=== PATIENT | female | born 1995 | race American Indian/Alaskan Native ===

== ENCOUNTER 2018-01-20 07:14 | Day surgery (SDC) | payer BC, MEDICAID ==
[2018-01-20] MEDS ORDERED: Lactated Ringer's 1,000 ML IV ONE (07:20)
[2018-01-20 07:29] VITALS: BMI 25.0
[2018-01-20] MEDS ORDERED: Succinylcholine 200 mg/10 ml Inj IV ONE (07:38)
[2018-01-20] MEDS ORDERED: Propofol 10 mg/ml Inj (20 ML) ONE (07:38)
[2018-01-20] MEDS ORDERED: Phenylephrine 10 mg/ml Inj ONE (07:45)
[2018-01-20 07:46] LABS: BASO % 0.4 % (0.0-2.0); EOS # 0.3 K/uL (0.0-0.7); EOS % 3.5 % (0.0-4.0); HEMOGLOBIN 12.8 g/dL (12.0-16.0); LYMPH # 2.7 K/uL (1.0-4.3); LYMPH % 34.9 % (20.0-40.0); MEAN CELL VOLUME 92.3 fl (81.0-99.0); MEAN CORPUSCULAR HEMOGLOBIN 31.6 pg (27.0-31.0); MEAN CORPUSCULAR HGB CONC 34.2 g/dL (33.0-37.0); MEAN PLATELET VOLUME 9.1 fl (7.2-11.7); MONO # 0.6 K/uL (0.0-0.8); MONO % 7.7 % (0.0-10.0); NEUT # 4.1 K/uL (1.8-7.0); NEUT % 53.5 % (50.0-75.0); RBC 4.05 Mil/uL (3.80-5.20); RED CELL DISTRIBUTION WIDTH 13.3 % (11.5-14.5); WHITE BLOOD COUNT 7.6 K/uL (4.8-10.8)
[2018-01-20 08:25] VITALS: O2SAT 100
[2018-01-20] MEDS ORDERED: Midazolam 2 MG/2 ML VIAL ONE (09:13)
[2018-01-20] MEDS ORDERED: cefOXitin IV 1 gm in Dextrose 1 GM/50 ML BAG IVPB ONE (09:33)
[2018-01-20 12:18] VITALS: TEMP 98
[2018-01-20 15:13] VITALS: BP 126/68; PULSE 72; RESP 18
--- NOTE | 2018-01-20 21:13 | OP ---
PROCEDURE DATE: 01/20/2018 PREOPERATIVE DIAGNOSIS: Missed . POSTOPERATIVE DIAGNOSIS: Missed , pending pathology. PROCEDURE: Dilatation and curettage with suction. FINDINGS: Moderate amount of tissue on curettage. ESTIMATED BLOOD LOSS: Above 75 to 100 mL. DESCRIPTION OF PROCEDURE: With the patient in dorsal lithotomy position under general anesthesia, the patient was prepped and draped in the usual sterile manner. Straight catheter was used to empty the bladder, after which the weighted speculum placed in the posterior vagina. Cervix was grasped and dilated. Uterus was found to be enlarged on examination. After that, #8 suction tip was introduced uterus was suctioned and obtained a moderate amount of tissue. Estimated blood loss was about 75 to 100 mL. Instruments were removed from the cervix and after which a hemostasis was maintained. The patient tolerated the procedure well and was in satisfactory condition on the way to recovery room. Joselito Lucio MD
== END 2018-01-20 15:10 | disposition home or self-care (01) ==
LOC: H.OPSURG 07:14
PROVIDERS: ATTEND Specialist
DX: O02.1 Missed abortion (principal)
CPT/HCPCS: 36415; 59820; 85025; 86850; 86900; 88305; J0330; J0694; J2001; J2250; J2270; J2370; J2704; J3010; J7030; J7120